=== PATIENT | female | born 2000 | race Caucasian/White ===

== ENCOUNTER 2024-03-15 06:44 | Day surgery (SDC) | payer OTHER ==
[~2024-03-15] VITALS: Ht 167.6 cm; Wt 76.5 kg
[~2024-03-15 06:44] MED LIST: LR 1,000 ML IV SCH; Ondansetron 4 MG/2 ML VIAL IV PRN; ZOFRAN 4MG T4 MG/TAB PO
[2024-03-15] MEDS ORDERED: BUSPAR10 MG PO (07:19)
[2024-03-15] MEDS ORDERED: ZOLOFT 100MG100 MG PO (07:19)
[2024-03-15] MEDS ORDERED: NORETHINDRONE0.35 MG PO (07:35)
[2024-03-15 07:37] VITALS: BP 114/83; PULSE 64; TEMP 97.2
[2024-03-15] MEDS ORDERED: Lidocaine PF 2% (20 MG/ML) 5 ML VIAL ONE (08:44)
[2024-03-15 09:20] VITALS: BP 109/76; PULSE 56; TEMP 97.2
[2024-03-15 09:35] VITALS: BP 122/78; PULSE 52
--- NOTE | 2024-03-15 09:51 | NUR ---
0920- Pt returns from procedure via cart to bay 4. Ambulates to recliner chair with assit of 2. VSS. Denies complaints. Muffin and coffee given. Significant other at bedside. Call light within reach. 0935- Discharge instructions given, questions answered 0941- dr. Da Silva in room to talk with patient 0944- Pt up and getting dressed. 0950- IV site removed, pt wheeled down to private vehicle via w/c.
== END 2024-03-15 09:50 | disposition home or self-care (01) ==
LOC: SDCO 06:44
DX: K21.00 Gastro-esophageal reflux disease with esophagitis, without bleeding (principal); K29.80 Duodenitis without bleeding; K29.50 Unspecified chronic gastritis without bleeding; R19.7 Diarrhea, unspecified; R15.2 Fecal urgency
CPT/HCPCS: J2704; J7120